=== PATIENT | female | born 1990 | race Caucasian/White ===

== ENCOUNTER 2021-06-06 15:27 | Emergency (ER) | payer OTHER ==
[~2021-06-06] VITALS: Ht 162.6 cm; Wt 66.7 kg
[2021-06-06 16:23] LABS: BASOPHILS ABSOLUTE AUTO 0.03 K/mm3 (0.00-0.23); BASOPHILS PERCENT AUTO 0 % (0-2); EOSINOPHILS ABSOLUTE AUTO 0.17 K/mm3 (0.00-0.68); EOSINOPHILS PERCENT AUTO 2 % (0-6); Hematocrit 36.5 % (33.0-51.0); Hemoglobin 12.3 g/dL (11.5-16.0); IMMATURE GRAN ABSOLUTE AUTO 0.02 K/mm3 (0.00-0.10); IMMATURE GRAN PERCENT AUTO 0 % (0-1); LYMPHOCYTES ABSOLUTE AUTO 2.27 K/mm3 (0.84-5.20); LYMPHOCYTES PERCENT AUTO 28 % (21-46); MONOCYTES ABSOLUTE AUTO 0.52 K/mm3 (0.16-1.47); MONOCYTES PERCENT AUTO 7 % (4-13); Mean Corpuscular HGB 29.8 pg (26.0-34.0); Mean Corpuscular HGB Conc 33.7 g/dL (31.5-36.5); Mean Corpuscular Volume 88 fL (80-100); Mean Platelet Volume 10.9 fL (9.1-12.4); NEUTROPHILS ABSOLUTE AUTO 4.97 K/mm3 (1.96-9.15); NEUTROPHILS PERCENT AUTO 62 % (41-73); Platelet Count 225 K/mm3 (150-400); RDW Coefficient Variation 11.9 % (11.7-14.2); Red Blood Cell Count 4.13 M/mm3 (3.80-5.20); White Blood Cell Count 7.98 K/mm3 (4.00-11.30)
[2021-06-06 16:56] LABS: Anion Gap 6 mmol/L (6-16); Blood Urea Nitrogen 12 mg/dL (8-24); Bun/Creatinine Ratio 19.3 (12.0-20.0); CO2, Blood 25 mmol/L (21-32); Calcium, Blood 9.2 mg/dL (8.5-10.1); Chloride, Blood 107 mmol/L (98-108); Creatinine, Blood 0.62 mg/dL (0.40-1.00); Glomerular Filtration Rate >60 (60-); Glucose, Blood 88 mg/dL (70-99); Potassium, Blood 3.6 mmol/L (3.5-5.5); Sodium, Blood 138 mmol/L (136-145)
[2021-06-06 16:58] LABS: Beta HCG, Quantitative, Serum 5463 mIU/mL (0-3)
== END 2021-06-06 17:46 | disposition home or self-care (01) ==
LOC: ER 15:27
PROVIDERS: Physician Assistant
DX: O20.0 Threatened abortion (principal); Z3A.01 Less than 8 weeks gestation of pregnancy; Z88.5 Allergy status to narcotic agent
CPT/HCPCS: 36415; 76801; 76817; 80048; 81000; 84702; 85025; 86900; 86901; 99284-25

== ENCOUNTER 2021-09-06 17:42 | Emergency (ER) | payer OTHER ==
[~2021-09-06] VITALS: Ht 162.6 cm; Wt 69.0 kg
== END 2021-09-06 20:14 | disposition home or self-care (01) ==
LOC: ER 17:42
DX: O34.81 Maternal care for other abnormalities of pelvic organs, first trimester (principal); N83.202 Unspecified ovarian cyst, left side
CPT/HCPCS: 76801; 76817; 84702; 99284-25

== ENCOUNTER 2021-09-11 08:07 | Day surgery (SDC) | payer OTHER ==
[2021-09-10 10:52] LABS: BASOPHILS ABSOLUTE AUTO 0.04 K/mm3 (0.00-0.23); BASOPHILS PERCENT AUTO 1 % (0-2); EOSINOPHILS ABSOLUTE AUTO 0.09 K/mm3 (0.00-0.68); EOSINOPHILS PERCENT AUTO 1 % (0-6); Hematocrit 39.9 % (33.0-51.0); Hemoglobin 13.4 g/dL (11.5-16.0); IMMATURE GRAN ABSOLUTE AUTO 0.01 K/mm3 (0.00-0.10); IMMATURE GRAN PERCENT AUTO 0 % (0-1); LYMPHOCYTES ABSOLUTE AUTO 2.38 K/mm3 (0.84-5.20); LYMPHOCYTES PERCENT AUTO 37 % (21-46); MONOCYTES PERCENT AUTO 8 % (4-13); Mean Corpuscular HGB 29.9 pg (26.0-34.0); Mean Corpuscular HGB Conc 33.6 g/dL (31.5-36.5); Mean Corpuscular Volume 89 fL (80-100); Mean Platelet Volume 10.9 fL (9.1-12.4); NEUTROPHILS ABSOLUTE AUTO 3.47 K/mm3 (1.96-9.15); NEUTROPHILS PERCENT AUTO 53 % (41-73); Platelet Count 256 K/mm3 (150-400); RDW Coefficient Variation 11.9 % (11.7-14.2); RDW Standard Deviation 38.6 fL (35.1-46.3); Red Blood Cell Count 4.48 M/mm3 (3.80-5.20); White Blood Cell Count 6.49 K/mm3 (4.00-11.30)
[~2021-09-11] VITALS: Ht 162.6 cm; Wt 70.1 kg
[2021-09-11] MEDS ORDERED: DULO30 PO (08:32)
[2021-09-11] MEDS ORDERED: MULTI-VITAMIN1 EAC2 PO (08:33)
[2021-09-11] MEDS ORDERED: GABA100 PO (08:33)
[2021-09-11] MEDS ORDERED: CYCL10 PO (08:33)
--- NOTE | 2021-09-11 09:49 | NUR ---
09/11/21 0949 Orly Potter N 1610 FLUID DEFICIT PER MYOSURE, DR RUSSO AWARE, NO ORDERS. 150 MLS BLOOD LOSS. BOTH DR WANG & RAFAELA PETERSON.
== END 2021-09-11 10:24 | disposition home or self-care (01) ==
LOC: ORSCSDS 08:07
PROVIDERS: Obstetrics & Gynecology
PROC: 0UDB8ZX Extraction of Endometrium, Via Natural or Artificial Opening Endoscopic, Diagnostic (ICD-10-PCS; principal; 2021-09-11 09:30)
DX: O02.1 Missed abortion (principal); K21.9 Gastro-esophageal reflux disease without esophagitis; Z87.891 Personal history of nicotine dependence; G40.909 Epilepsy, unspecified, not intractable, without status epilepticus; Z79.899 Other long term (current) drug therapy
CPT/HCPCS: 36415; 84703; 85025; 86850; 86900; 86901; 88305; A9270; J0690; J2250; J2405; J2704; J2765; J3010; J7120

== ENCOUNTER → 2021-09-18 | Outpatient (CLI) | payer OTHER ==
[~2021-09-18] MED LIST: CYCL10 PO; DULO30 PO; GABA100 PO; MULTI-VITAMIN1 EAC2 PO
== END | disposition home or self-care (01) ==
LOC: LAB SHORT 17:30
DX: J34.81 Nasal mucositis (ulcerative) (principal)
CPT/HCPCS: 87077; 87186

== ENCOUNTER 2021-11-18 11:22 | Emergency (ER) | payer BC ==
[~2021-11-18] VITALS: Ht 162.6 cm; Wt 72.5 kg
[2021-11-18 11:54] LABS: BASOPHILS ABSOLUTE AUTO 0.05 K/mm3 (0.00-0.23); BASOPHILS PERCENT AUTO 1 % (0-2); EOSINOPHILS ABSOLUTE AUTO 0.06 K/mm3 (0.00-0.68); EOSINOPHILS PERCENT AUTO 1 % (0-6); Hemoglobin 13.1 g/dL (11.5-16.0); IMMATURE GRAN ABSOLUTE AUTO 0.02 K/mm3 (0.00-0.10); IMMATURE GRAN PERCENT AUTO 0 % (0-1); LYMPHOCYTES ABSOLUTE AUTO 2.41 K/mm3 (0.84-5.20); LYMPHOCYTES PERCENT AUTO 33 % (21-46); MONOCYTES ABSOLUTE AUTO 0.52 K/mm3 (0.16-1.47); MONOCYTES PERCENT AUTO 7 % (4-13); Mean Corpuscular HGB 29.2 pg (26.0-34.0); Mean Corpuscular HGB Conc 33.6 g/dL (31.5-36.5); Mean Corpuscular Volume 87 fL (80-100); Mean Platelet Volume 11.1 fL (9.1-12.4); NEUTROPHILS ABSOLUTE AUTO 4.35 K/mm3 (1.96-9.15); NEUTROPHILS PERCENT AUTO 59 % (41-73); Platelet Count 284 K/mm3 (150-400); RDW Coefficient Variation 12.1 % (11.7-14.2); RDW Standard Deviation 39.1 fL (35.1-46.3); Red Blood Cell Count 4.48 M/mm3 (3.80-5.20); White Blood Cell Count 7.41 K/mm3 (4.00-11.30)
[2021-11-18 12:37] LABS: Source, Urine Clean Catch
[2021-11-18 12:42] LABS: Appearance, Urine Clear (Clear); Bilirubin, Urine Neg (Neg); Blood, Urine 3+ (Neg); Color, Urine Yellow (P-Yellow); Glucose Qualitative, Urine Neg (Neg); Ketones, Urine Neg (Neg); Leukocyte Esterase, Urine Neg (Neg); Nitrite, Urine Neg (Neg); Protein, Urine Neg (Neg); Urobilinogen, Urine NORM (Normal)
[2021-11-18 12:56] LABS: Alanine Aminotransfer (ALT/SGP 21 U/L (12-78); Albumin, Blood 3.9 g/dL (3.4-5.0); Albumin/Globulin Ratio 1.2 (0.8-1.8); Alk Phos 73 U/L (50-136); Anion Gap 6 mmol/L (6-16); Aspartate Aminotrans (AST/SGOT 19 U/L (12-37); Beta HCG, Quantitative, Serum 215 mIU/mL (0-3); Bilirubin, Total 0.5 mg/dL (0.1-1.0); Blood Urea Nitrogen 11 mg/dL (8-24); Bun/Creatinine Ratio 17.1 (12.0-20.0); CO2, Blood 24 mmol/L (21-32); Calcium, Blood 9.5 mg/dL (8.5-10.1); Chloride, Blood 108 mmol/L (98-108); Creatinine, Blood 0.64 mg/dL (0.40-1.00); Globulin, Blood 3.3 g/dL (2.2-4.0); Glomerular Filtration Rate >60 (60-); Glucose, Blood 89 mg/dL (70-99); Potassium, Blood 4.2 mmol/L (3.5-5.5); Sodium, Blood 138 mmol/L (136-145); Total Protein, Blood 7.2 g/dL (6.4-8.2)
[2021-11-18 12:57] LABS: Amorphous Light (0-Heavy); Bacteria Few /hpf; Squamous Epithelial Cells Few /hpf (Few); White Blood Cells, Urine 0-2 /hpf (0-5)
== END 2021-11-18 13:05 | disposition home or self-care (01) ==
LOC: ER 11:22
PROVIDERS: Physician Assistant
DX: O20.0 Threatened abortion (principal); Z3A.01 Less than 8 weeks gestation of pregnancy
CPT/HCPCS: 36415; 76801; 76817; 80053; 81001; 84702; 85025; 86900; 86901; 99284-25

== ENCOUNTER 2021-12-01 08:22 | Emergency (ER) | payer BC ==
[~2021-12-01] VITALS: Ht 162.6 cm; Wt 72.6 kg
[2021-12-01] MEDS ORDERED: PRENATAL TABLE1 EAC2 PO (08:36)
== END 2021-12-01 09:31 | disposition home or self-care (01) ==
LOC: ER 08:22
DX: O99.891 Other specified diseases and conditions complicating pregnancy (principal); M54.50 Low back pain, unspecified; M25.572 Pain in left ankle and joints of left foot; Z3A.01 Less than 8 weeks gestation of pregnancy; Z88.8 Allergy status to other drugs, medicaments and biological substances; Z88.5 Allergy status to narcotic agent; Z88.1 Allergy status to other antibiotic agents; Z79.899 Other long term (current) drug therapy
CPT/HCPCS: 99283; A9270

== ENCOUNTER → 2022-05-04 | Outpatient (CLI) | payer BC, OTHER ==
[~2022-05-04] MED LIST changes: +PRENATAL TABLE1 EAC2 PO
== END | disposition home or self-care (01) ==
LOC: LAB SHORT 15:30
DX: Z09 Encounter for follow-up examination after completed treatment for conditions other than malignant neoplasm (principal); Z86.14 Personal history of Methicillin resistant Staphylococcus aureus infection
CPT/HCPCS: 87081

== ENCOUNTER 2023-08-09 12:01 | Day surgery (SDC) | payer OTHER ==
[~2023-08-09] VITALS: Ht 162.6 cm; Wt 33.2 kg
[2023-08-09] MEDS ORDERED: MELO7.5 (12:53)
[2023-08-09] MEDS ORDERED: ERGO400 (12:54)
[2023-08-09] MEDS ORDERED: DICLOFENAC SODI50 GM TOP (12:56)
[2023-08-09] MEDS ORDERED: HYDHCL25 (12:56)
[2023-08-09 14:05] VITALS: BP 116/73
--- NOTE | 2023-08-09 16:03 | NUR ---
08/09/23 1602 Sai Pepper IV REMOVED INTACT. SITE WNL.
== END 2023-08-09 15:00 | disposition home or self-care (01) ==
LOC: ORSCSDS 12:01
PROVIDERS: Podiatrist Foot & Ankle Surgery
PROC: 01BG0ZZ Excision of Tibial Nerve, Open Approach (ICD-10-PCS; principal; 2023-08-09 13:30)
DX: G57.61 Lesion of plantar nerve, right lower limb (principal); F41.9 Anxiety disorder, unspecified; F32.A Depression, unspecified; M79.7 Fibromyalgia; K21.9 Gastro-esophageal reflux disease without esophagitis; Z79.899 Other long term (current) drug therapy
CPT/HCPCS: 88304; J0171; J0690; J2795

== ENCOUNTER 2024-06-05 08:49 | Emergency (ER) | payer OTHER ==
[~2024-06-05] VITALS: Ht 165.1 cm; Wt 83.5 kg
[~2024-06-05 08:49] MED LIST changes: +ABILIFY MYCITE20 M2 PO; +Cyclobenzaprine5 MG PO; +DICLOFENAC SODI50 GM TOP; +ERGO400; +HYDHCL25; +MELO7.5
[2024-06-05] MEDS ORDERED: Acetaminophen 500 MG Tab PO ONE (09:50)
[2024-06-05] MEDS ORDERED: Cyclobenzaprine HCl 10 MG Tab PO ONE (09:50)
[2024-06-05] MEDS ORDERED: Lidocaine 4% 1 Patch TOP ONE (09:50)
[2024-06-05] MEDS ORDERED: Ketorolac Tromethamine 30mg Vial IM ONE (09:50)
[2024-06-05] MEDS ORDERED: CYCL10 PO (09:54)
[2024-06-05] MEDS ORDERED: IBUP800 PO (09:54)
[2024-06-05] MEDS ORDERED: LIDO700A20 TOP (09:54)
[2024-06-05 10:18] VITALS: BP 115/71
== END 2024-06-05 10:17 | disposition home or self-care (01) ==
LOC: ER 08:49
DX: S39.012A Strain of muscle, fascia and tendon of lower back, initial encounter (principal); X50.0XXA Overexertion from strenuous movement or load, initial encounter; Z87.891 Personal history of nicotine dependence
CPT/HCPCS: 96372; 99283-25; A9270; J1885

== ENCOUNTER → 2024-07-27 | Outpatient (CLI) | payer OTHER ==
[~2024-07-27] MED LIST changes: +IBUP800 PO; +LIDO700A20 TOP
[2024-07-29 05:02] LABS: ANTI-NUCLEAR AB ANA,IGG ELISA None Detected (None Detected)
== END ==
LOC: LAB 13:34 → LAB SHORT 13:34
PROVIDERS: Internal Medicine
DX: L30.0 Nummular dermatitis (principal)
CPT/HCPCS: 85651; 86038; 86140

== ENCOUNTER 2024-08-22 13:28 | Emergency (ER) | payer OTHER ==
[~2024-08-22] VITALS: Ht 165.1 cm; Wt 81.7 kg
[2024-08-22 13:40] VITALS: BP 137/98
[2024-08-22] MEDS ORDERED: HYDHCL25 PO (17:19)
== END 2024-08-22 17:25 | disposition home or self-care (01) ==
LOC: ER 13:28
DX: F32.A Depression, unspecified (principal); F43.10 Post-traumatic stress disorder, unspecified; Z79.899 Other long term (current) drug therapy; Z88.1 Allergy status to other antibiotic agents; Z88.6 Allergy status to analgesic agent; Z88.5 Allergy status to narcotic agent; Z88.8 Allergy status to other drugs, medicaments and biological substances
CPT/HCPCS: 99283

== ENCOUNTER → 2024-10-05 | Outpatient (CLI) | payer OTHER ==
[~2024-10-05] MED LIST changes: +HYDHCL25 PO
== END ==
LOC: LAB 16:45 → LAB SHORT 16:45
DX: R30.0 Dysuria (principal)
CPT/HCPCS: 87077; 87086; 87186

== ENCOUNTER → 2024-12-05 | Outpatient (CLI) | payer OTHER ==
[2024-12-05 15:31] LABS: Progesterone 11.7 ng/mL; Prolactin 8.6 ng/mL; Thyroid Stimulating Hormone 2.15 uIU/mL (0.360-4.800)
[2024-12-06 15:57] LABS: ESTRADIOL BY IMMUNOASSAY 86 pg/mL
== END ==
LOC: LAB 13:27 → LAB SHORT 13:27
PROVIDERS: Internal Medicine
DX: N91.1 Secondary amenorrhea (principal)
CPT/HCPCS: 82670; 83001; 84144; 84146; 84443